=== PATIENT | male | born 1965 | race Caucasian/White ===

== ENCOUNTER 2017-01-31 13:55 | Emergency (ER) | payer OTHER ==
[~2017-01-31] VITALS: Ht 190.5 cm; Wt 108.3 kg
[2017-01-31] MEDS ORDERED: FLEXERIL10 MG PO (17:01)
[2017-01-31] MEDS ORDERED: NAPROSYN500 MG PO (17:01)
[2017-01-31 17:13] VITALS: BP 128/76
== END 2017-01-31 17:13 | disposition home or self-care (01) ==
LOC: EXP 13:55 → EME 13:55 → EXP 17:13
DX: M54.9 Dorsalgia, unspecified (principal); R07.81 Pleurodynia; V49.40XA Driver injured in collision with unspecified motor vehicles in traffic accident, initial encounter
CPT/HCPCS: 71020; 72100; 99281; 99284

== ENCOUNTER 2017-08-20 04:13 | Observation (INO) | payer SELFPAY ==
[~2017-08-20] VITALS: Ht 190.5 cm; Wt 116.8 kg
[~2017-08-20 04:13] MED LIST: FLEXERIL10 MG PO; NAPROSYN500 MG PO
[2017-08-20 04:48] LABS: HEMATOCRIT 46.2 % (38.0-50.0); MCH 30.3 PG (29.0-34.0); MCHC 34.8 G/DL (30.0-36.0); MCV 86.8 FL (86-99); MEAN PLAT.VOLUME 10.9 uM^3 (9.0-12.4); PLATELET COUNT 210 K/uL (156-360); RBC DIS.WIDTH-SD 40.7 % (39-53); RED BLOOD COUNT 5.32 M/uL (4.00-5.50); WHITE BLOOD COUNT 8.3 K/uL (4.1-10.2)
[2017-08-20 04:50] LABS: CARBON DIOXIDE (BICARBONATE) 28.6 MEQ/L (20-31)
[2017-08-20 04:59] LABS: CHLORIDE 103 mEq/L (99-109); POTASSIUM 3.5 mEq/L (3.7-5.4); SODIUM 140 mEq/L (136-147)
[2017-08-20 05:01] LABS: GLUCOSE 134 mg/dL (70-99)
[2017-08-20 05:02] LABS: ANION GAP 12 MEQ/L (2-14)
[2017-08-20 05:05] LABS: GFR ESTIMATE (CALCULATED) > 59 mL/min/ (58.99-99999)
[2017-08-20 05:06] LABS: UREA NITROGEN (BUN) 12 mg/dL (9-23)
[2017-08-20 05:13] LABS: TROP-I INTERPRETATION NEGATIVE; TROPONIN-I < 0.01 ng/mL (0.0-0.30)
[2017-08-20 08:54] VITALS: BP 140/99
[2017-08-20 11:45] VITALS: BP 164/96
[2017-08-20 12:04] LABS: D-DIMER ELISA < 150.00 ng/mLDDU (<230)
[2017-08-20 12:13] LABS: TROP-I INTERPRETATION NEGATIVE; TROPONIN-I < 0.01 ng/mL (0.0-0.30)
[2017-08-20 17:03] LABS: TROP-I INTERPRETATION NEGATIVE; TROPONIN-I < 0.01 ng/mL (0.0-0.30)
[2017-08-20] MEDS ORDERED: ASPIR-LOW81 MG PO (17:06)
[2017-08-20] MEDS ORDERED: MOTRIN400 MG PO (17:07)
[2017-08-20 20:00] VITALS: BP 135/90
[2017-08-21 00:10] VITALS: BP 136/72
[2017-08-21 03:34] VITALS: BP 129/72
[2017-08-21 07:35] VITALS: BP 171/98
[2017-08-21] MEDS ORDERED: NORVASC5 MG PO (08:03)
== END 2017-08-21 10:50 | disposition home or self-care (01) ==
LOC: EME → EDBD 04:13 → EME 04:13 → EDOF 07:23 → ENRESERV 07:26 → EDOF 07:32 → ENRESERV 07:46 → 5WEST 08:34
PROVIDERS: Emergency Medicine; Internal Medicine
DX: R07.9 Chest pain, unspecified (principal); I10 Essential (primary) hypertension; Z82.49 Family history of ischemic heart disease and other diseases of the circulatory system; Z80.0 Family history of malignant neoplasm of digestive organs; E87.6 Hypokalemia; Z88.0 Allergy status to penicillin
CPT/HCPCS: 71020; 80048; 82803; 83605; 83880; 84484; 85027; 85379; 87040; 93005; 94640; 94799; 99281; 99285; G0378; J1956